=== PATIENT | female | born 1935 | race Two or more races ===

== ENCOUNTER → 2016-12-03 | Outpatient (CLI) | payer MEDICARE, MEDICAID ==
--- NOTE | 2016-12-03 13:52 | RADRPT ---
PROCEDURE: XR Knees. CLINICAL INDICATION: Bilateral knee pain. TECHNIQUE: Total of eight views. Weightbearing frontal, oblique, and lateral views of the both kn ees. Patellar views of both knees. COMPARISON: No prior study is available for comparison. FINDINGS: There is no fracture or dislocation. The soft tissues are normal. There is diffuse osteopenia. There are degenerative changes with osteophytes arising from all 3 joint compartment margins bilater ally. There is bilateral medial joint compartment narrowing, subarticular sclerosis, and deformity. There is bilateral varus deformity. There is no lytic or blastic lesion. There is a femoral stem partially visualized from a right hip arthroplasty. IMPRESSION: 1. Diffuse osteopenia. 2. 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 3. Right hip arthroplasty. RPTAT: QQ .Angus Mcclelland MD, MD Date Time Electronically viewed and signed by .Angus Mcclelland MD, on 12/03/2016 13:52 .R/
== END | disposition home or self-care (01) ==
LOC: HKI 09:14
PROVIDERS: ATTEND Orthopaedic Surgery
DX: M25.561 Pain in right knee (principal); M25.562 Pain in left knee; Z96.641 Presence of right artificial hip joint; M85.80 Other specified disorders of bone density and structure, unspecified site
CPT/HCPCS: 73564; G0463